=== PATIENT | male | born 1950 | race Caucasian/White ===

== ENCOUNTER 2022-02-12 09:02 | Outpatient (RCR) | payer MEDICARE, OTHER, SELFPAY | END 2022-04-12 12:14 | disposition home or self-care (01) | PROVIDERS: PCP Surgery; Visit Provider Surgery | DX: M79.641 Pain in right hand (principal); Z51.89 Encounter for other specified aftercare | CPT/HCPCS: 97110; 97161 ==

== ENCOUNTER 2024-03-28 08:15 | Outpatient (RCR) | payer MEDICAID, SELFPAY | END 2024-03-28 10:10 | disposition home or self-care (01) | PROVIDERS: PCP Surgery; Visit Provider Surgery | DX: M25.512 Pain in left shoulder (principal); G89.29 Other chronic pain; R53.1 Weakness; Z51.89 Encounter for other specified aftercare | CPT/HCPCS: 97110; 97140; 97161 ==